=== PATIENT | male | born 1965 | race Caucasian/White ===

== ENCOUNTER 2023-05-12 15:35 | Emergency (ER) | payer OTHER, SELFPAY ==
[2023-05-12 15:39] VITALS: BP 153/93
[2023-05-12 15:51] VITALS: BMI 23.8
[2023-05-12 15:58] VITALS: BP 141/98
[2023-05-12 16:00] VITALS: BP 150/94
--- NOTE | 2023-05-12 16:06 | ED.GENMED ---
History of Present Illness
General
Chief Complaint: Visual Problem
Source: patient and other
Exam Limitations: none
Time Seen by Provider: 05/12/23 15:46
Travel History
Have you had any contact with someone who has COVID-19?: No
Do you have any symptoms of coronavirus? Fever > 100 degrees, chills, cough, shortness of breath, sore throat, loss of taste or smell, muscle aches, or headache?: No
History of Present Illness
History of Present Illness:
57-year-old male has not felt well for weeks. While out in [facility] at work he had a relatively sudden episode of disequilibrium falling to the ground. No syncope at that time. This symptom resolved although, his girlfriend stated he did
not appear well upon returning from the trip and has not been well since then. He is sleeping a lot he is lightheaded. He had a syncopal episode on the toilet 5 days ago hitting his head. No true double vision but at times blurry vision. Feels
like his gait is off. Patient does drink a 12 pack of [place] light per day for 7 years.
Past History
Past History
ED Past Medical History: None
Social History
Tobacco: Smoker
Alcohol: Occasional
Drug: None
Personal: Other (Noncontributory)
Living: with family
Employment: Employed
Family History
Family History: Other (Noncontributory)
Phy Exam
Physical Exam
Physical Exam:
GENERAL: Alert and oriented in no apparent distress. Healing abrasion to the forehead
EYE: Orbits normal. Extraocular muscles intact however brief nystagmus bilaterally that self resolves
NECK: Supple, nontender
ENT: Pharynx without erythema
CARDIAC: Regular rate and rhythm without any obvious murmurs.
LUNGS: Clear breath sounds,normal
ABDOMEN: Soft, without focal tenderness or distention
NEUROLOGICAL: Alert and oriented , cranial nerves II through XII intact. Speech normal. [id number] normal. [id number]-[id number] normal. No drift.
SKIN: Warm and dry, no rash or lesion, no discoloration, skin intact.
MUSCULOSKELETAL: No edema,no deformity.Good color
PSYCH: Normal and appropriate interaction.
Course
Orders/Labs/Results
Orders:
Orders
05/12/23 15:38
CT Head W/o Iv Contrast Urgent
Comment:
Reason For Exam: visual disturbances/head injury
05/12/23 16:02
Cardiac Monitoring- Treatment ONCE
IV Insert/Care/Rem.- Treatment PRN
05/12/23 16:03
Ribs, Right 3 View W/PA Chest [CR Ribs-right 3 Vw W/pa Chest*] Urgent
Comment:
Reason For Exam: right rib pain.trauma
05/12/23 16:04
EKG [Electrocardiogram (*1)] Urgent
Reason for Study: Syncope
EKG- Treatment ONCE
05/12/23 16:09
Alcohol Urgent
Complete Blood Count/With Diff Urgent
Comprehensive Metabolic Panel Urgent
Magnesium Urgent
PTT Urgent
Prothrombin Time Urgent
TSH Reflex To Free T4 Urgent
05/12/23 17:00
0.9% Sodium Chloride 1000 ml [Nss] 1,000 ml Mvi, Adult [Multivitamin] 10 ml Thiamine Injection 100 mg IV 250 mls/hr
Abnormal Lab Results
05/12/23
16:09
WBC 3.8 L 10^3/uL
(4.8-10.8)
RBC 4.40 L 10^6/uL
(4.70-6.10)
MCV 94.8 H fL
(80.0-94.0)
MCH 33.4 H pg
(27.0-31.0)
Plt Count 114 L 10^3/uL
(130-400)
MPV 11.3 H fL
(7.4-10.4)
Absolute Lymphs (auto) 1.0 L 10^3/uL
(1.2-3.4)
Monocytes % 16.8 H %
(1.7-9.3)
Chloride 96 L mmol/L
(98-107)
BUN 5 L mg/dl
(9-20)
Glucose 113 H mg/dl
(70-99)
AST 184 H U/L
(17-59)
ALT 113 H U/L
(0-50)
Alkaline Phosphatase 201 H U/L
(38-126)
05/12/23 16:09
05/12/23 16:09
Vital Signs
Initial and Last Documented VS:
Initial Vital Signs
Temp Pulse Resp BP Pulse Ox
98.2 F 112 17 153/93 98
05/12/23 15:39 05/12/23 15:39 05/12/23 15:39 05/12/23 15:39 05/12/23 15:39
Last Documented Vital Signs
Temp Pulse Resp BP Pulse Ox
98.2 F 94 23 150/94 98
05/12/23 15:39 05/12/23 17:15 05/12/23 17:15 05/12/23 16:00 05/12/23 15:39
MDM/Problems Addressed
Differential Diagnosis Includes:
Patient with near syncope, some disequilibrium and cognitively slightly off the last 2 weeks. Grossly nonfocal. Head CT negative. Large differential including electrolyte or vitamin deficiency, cardiac rhythm issue although it does not explain
all of his symptoms. Likely related to his alcohol use directly or indirectly.
*Radiology
Radiology exam reviewed: radiology read reviewed (Negative)
*Pulse Oximetry
Patient hypoxic: no
*EKG
Interpreted by ED Provider?: Yes
Interpretation: normal
Comparison EKG: no changes
Heart Rate: 95
Rate: normal
Rhythm: sinus
Interval: normal interval
QRS Pattern: normal QRS
Ischemia: no ischemia
*Critical Care Note
Total Time (30-74mins, 75-104mins- exclusive of procedures): Not Applicable
Data Reviewed
Review of Other/Old Records Reveals: Labs and Records
Update Note
Update Note:
Patient's workup has been stable except for a significant alcohol elevation. Cannot find any other serious explanation for his symptoms. He is neurologically stable. Lengthy discussion with the patient concerning inpatient versus outpatient
management. Also offered help with [facility]
No strong medical indication for admission. I cannot find any other explanation for his symptoms other than his alcohol issues. Syncope sounded vasovagal like. He is clinically stable neurologically stable. However he was offered admission as I
explained there is of course no role do states you can have 2 issues and possibly there is a second underlying issue independent of his alcohol. Again admission was offered but patient refuses and wants to go home. I also encouraged him to talk to
the drug and alcohol liaison. He did talk to him and was given some information for outpatient although per the liaison, did not appear incredibly interested in getting help at this time. Patient will not drive home.
ED Attending Note
-
Portions of this chart may have been created with voice recognition software.� Occasional wrong word or��sound alike� substitutions may have occurred due to the inherent limitations of voice recognition software.
Discharge Plan
Departure
Patient Disposition: Home (Routine Discharge)
Date of Disposition: 05/12/23
Time of Disposition: 18:42
Patient with high blood pressure during this ER visit?: Yes
Discharge Problem:
Recent syncope, Recent head injury, Forehead abrasion, Alcohol use disorder
Instructions: Head Injury in Adults (DC), Syncope (Fainting) (DC), Alcohol Use Disorder (DC), Alcohol Intoxication ED, BLOOD PRESSURE
Prescriptions:
No Action
trazodone 50 mg tablet
50 mg PO HS
Tylenol PM Extra Strength 25-500 mg Tablet
1 tab PO HS
fluticasone propionate [Flonase] 50 mcg/actuation [place],Suspension
1 spray INTRANASAL DAILY PRN (Reason: allergies/congestion)
omeprazole 20 mg Tablet,Delayed Release (Dr/Ec)
20 mg PO DAILY PRN (Reason: heartburn/gi issues)
Referrals:
Travis Medeiros MD [Family Provider] - Follow up in 2-3 days
Activity Restrictions/Additional Instructions:
I recommend not driving while using alcohol
Interventions
Interventions:
*Risk Screen - Suicide Last Done: 05/12/23 15:39
*General Assessment Last Done: 05/12/23 15:39
*Neglect/Abuse Screening Last Done: 05/12/23 15:39
ED- Fall Risk Assessment Last Done: 05/12/23 15:48
*ED COVID-19 Vaccine History Last Done: 05/12/23 15:39
*Nursing Disposition Last Done: 05/12/23 19:04
ED- Neurological Assessment Last Done: 05/12/23 15:59
ED-EENT Assessment Last Done: 05/12/23 15:59
Discharge Date and Time
Discharge Date/Time: 05/12/23 19:05
[2023-05-12] MEDS: MULTIVITAMIN 1011 MG IV (16:28)
[2023-05-12] MEDS: MULTIVITAMIN 1011 ML IV (16:28)
[2023-05-12 16:30] LABS: % Basophils 0.5 % (0-2); % Eosinophils 0.8 % (0-6); % Immature Granulocytes 0.5 % (0-0.5); % Lymphocytes 24.9 % (20.5-51.1); % Monocytes 16.8 % (1.7-9.3); % Neutrophils 56.5 % (42.2-75.2); Absolute Monocytes 0.6 10^3/uL (0.1-0.6); Absolute Neutrophils 2.2 10^3/uL (1.4-6.5); Hematocrit 41.7 % (39.0-52.0); Hemoglobin 14.7 g/dL (13.0-18.0); Mean Corp Hgb Conc. 35.3 g/dL (33.0-37.0); Mean Corpuscular Hgb 33.4 pg (27.0-31.0); Mean Corpuscular Volume 94.8 fL (80.0-94.0); Mean Platelet Volume 11.3 fL (7.4-10.4); Nucleated Red Blood Cells % 0 % (-); Platelet Count 114 10^3/uL (130-400); Red Cell Dist. Width 12.4 % (11.5-14.5); White Blood Cell Count 3.8 10^3/uL (4.8-10.8)
[2023-05-12 16:37] LABS: INR 1.05; PT 13.5 Sec (11.4-14.6)
[2023-05-12 16:38] LABS: APTT 31.7 Sec (23.4-35.0)
[2023-05-12 16:42] LABS: ALT (SGPT) 113 U/L (0-50); AST (SGOT) 184 U/L (17-59); Albumin 4.4 g/dl (3.5-5.0); Alkaline Phosphatase 201 U/L (38-126); Blood Urea Nitrogen 5 mg/dl (9-20); Calcium 9.2 mg/dl (8.4-10.2); Carbon Dioxide 27 mmol/L (22-30); Chloride 96 mmol/L (98-107); Estimated Creatinine Clearance > 125 ml/min; Glucose 113 mg/dl (70-99); Magnesium 2.2 mg/dl (1.6-2.3); Potassium 4.1 mmol/L (3.5-5.1); Sodium 135 mmol/L (135-145); Total Bilirubin 0.5 mg/dl (0.2-1.3); Total Protein 7.5 g/dl (6.3-8.2); eGFR > 60.00
[2023-05-12 16:54] LABS: Alcohol 341 mg/dl
[2023-05-12 17:11] LABS: TSH Reflex To Free T4 4.07 uIU/ml (0.47-4.68)
== END 2023-05-12 19:05 | disposition home or self-care (01) ==
LOC: EMR 15:35
PROVIDERS: EMERGENCY PHYSICIAN Emergency Medicine; FAMILY PHYSICIAN Family Medicine
DX: R55 Syncope and collapse (principal); S09.90XA Unspecified injury of head, initial encounter; S00.81XA Abrasion of other part of head, initial encounter; X58.XXXA Exposure to other specified factors, initial encounter; F10.10 Alcohol abuse, uncomplicated; F17.200 Nicotine dependence, unspecified, uncomplicated; R03.0 Elevated blood-pressure reading, without diagnosis of hypertension
CPT/HCPCS: 99285; 96360; 70450; 71101; 80053; 82077; 83735; 84443; 85025; 85610; 85730; 93005

== ENCOUNTER → 2023-06-17 07:27 | Outpatient (REF) | payer OTHER, SELFPAY | LOC: PAVMRI 07:27 | PROVIDERS: ATTENDING PHYSICIAN Physician Assistant | DX: R42 Dizziness and giddiness (principal); R55 Syncope and collapse; F10.20 Alcohol dependence, uncomplicated; R25.1 Tremor, unspecified | CPT/HCPCS: 70553; A9575 ==

== ENCOUNTER → 2023-09-15 06:55 | Outpatient (REF) | payer OTHER, SELFPAY | LOC: MRI 3T 06:55 | PROVIDERS: ATTENDING PHYSICIAN Orthopaedic Surgery; FAMILY PHYSICIAN Family Medicine | DX: M25.571 Pain in right ankle and joints of right foot (principal); M79.671 Pain in right foot | CPT/HCPCS: 73718; 73721 ==